=== PATIENT | female | born 1930 | race Caucasian/White ===

== ENCOUNTER 2016-10-23 20:43 | Emergency (ER) | payer OTHER, MEDICARE ==
[2016-10-23 20:49] VITALS: BP 133/94; PULSE 108; TEMP 97.9; BMI 28.3
--- NOTE | 2016-10-23 21:23 | PDOC ---
History of Present Illness - General History Source: Patient Exam Limitations: No Limitations <Cherise Tse I - Last Filed: 10/23/16 21:33> - General History Source: Patient Exam Limitations: No Limitations - History of Present Illness Initial Comments: 10/23/16 21:35 The patient is an 86 year old female with no pertinent past medical history who presents to the ED with complaints of sinus congestion and pain for the past few days. She states the pain is worse when she bends her head forward and has also been experiencing nosebleeds. She denies any fever, chills, nausea, vomiting, diarrhea, cough, shortness of breath, or chest pain. PAST MEDICAL HISTORY: no significant history PAST SURGICAL HISTORY: no significant history FAMILY HISTORY: no pertinent history SOCIAL HISTORY: Pt lives with family and is employed. MEDICATIONS: reviewed ALLERGIES: As per nursing notes General: No fevers or chills, no weakness, no weight loss HEENT: Present: sinus pain/congestion No change in vision. No sore throat,. No ear pain CardioVascular: No chest pain or shortness of breath Respiratory:No cough, or wheezing. Gastrointestinal: no nausea, vomiting, diarrhea or constipation, No rectal bleeding Genitourinary: No dysuria, hematuria, or frequency Musculoskeletal: No joint or muscle pain or swelling Neurologic: No headache, vertigo, dizziness or loss of consciousness Psychiatric: nor depression Skin: No rashes or easy bruising Endocrine: no increased thirst or abnormal weight change Allergic: no skin or latex allergy All other systems reviewed and normal GENERAL: The patient is awake, alert, and fully oriented, in no acute distress. HEAD: Normal with no signs of trauma. EYES: Pupils equal, round and reactive to light, extraocular movements intact, sclera anicteric, conjunctiva clear. ENT: Tenderness on palpation of bilateral maxillary sinus, right greater than left EXTREMITIES: Normal range of motion, no edema. NEUROLOGICAL: Normal speech, normal gait. PSYCH: Normal mood, normal affect. SKIN: Warm, Dry, normal turgor, no rashes or lesions noted. 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) Cardiac Disorders: No CVA: No COPD: No CHF: No Dementia: No Diabetes: No GI Disorders: Yes (COLONIC POLYPS/ GERD) Disorders: Yes (UTI) HTN: Yes Hypercholesterolemia: Yes Liver Disease: No Seizures: No Thyroid Disease: No - Surgical History Abdominal Surgery: No Appendectomy: No Cardiac Surgery: No Cholecystectomy: No Lung Surgery: No Neurologic Surgery: No Orthopedic Surgery: Yes (bilateral bunionectomy) - Psycho/Social/Smoking Cessation Hx Anxiety: No Suicidal Ideation: No Smoking History: Never smoked Have you smoked in the past 12 months: No Number of Cigarettes Smoked Daily: 0 If you are a former smoker, when did you quit?: 1951 Hx Alcohol Use: Yes Drug/Substance Use Hx: No Substance Use Type: Alcohol Hx Substance Use Treatment: No <Cherise Tse I - Last Filed: 10/23/16 21:33> <Sandrita Ugalde - Last Filed: 10/23/16 21:38> - Past Medical History Allergies/Adverse Reactions: Allergies Allergy/AdvReac Type Severity Reaction Status Date / Time aspirin AdvReac Intermediate DYSPEPSIA Verified 07/04/13 13:01 indomethacin AdvReac Intermediate Gastritis Unverified 12/30/15 11:31 BEE STINGS Allergy Intermediate Swelling Uncoded 07/04/13 13:01 Home Medications: Ambulatory Orders Cholecalciferol (Vitamin D3) [Vitamin D3] 1,000 unit PO DAILY capsule 02/28/13 Simvastatin [Zocor -] 40 mg PO DAILY 07/04/13 Albuterol Sulfate [Proair Respiclick] 90 mcg IH BID 10/23/16 Azithromycin 250 mg PO DAILY #4 tablet 10/23/16 Review of Systems - Review of Systems Able to Perform ROS?: Yes <Sandrita Ugalde - Last Filed: 10/23/16 21:38> *Physical Exam - Vital Signs Last Vital Signs Temp Pulse Resp BP Pulse Ox 97.9 F 108 H 16 133/94 98 10/23/16 20:46 10/23/16 20:46 10/23/16 20:46 10/23/16 20:46 10/23/16 20:46 <Cherise Tse I - Last Filed: 10/23/16 21:33> - Vital Signs Last Vital Signs Temp Pulse Resp BP Pulse Ox 97.9 F 108 H 16 133/94 98 10/23/16 20:46 10/23/16 20:46 10/23/16 20:46 10/23/16 20:46 10/23/16 20:46 <Sandrita Ugalde - Last Filed: 10/23/16 21:38> *DC/Admit/Observation/Transfer <Cherise Tse I - Last Filed: 10/23/16 21:33> - Attestations Scribe Attestion: 10/23/16 21:38 Documentation prepared by Sandrita Ugalde, acting as medical orderly for Cherise Tse MD. <Sandrita Ugalde - Last Filed: 10/23/16 21:38> Diagnosis at time of Disposition: Acute sinusitis Qualifiers: Sinusitis location: maxillary Recurrence: not specified Qualified Code(s): J01.00 - Acute maxillary sinusitis, unspecified - Discharge Dispostion Disposition: HOME Condition at time of disposition: Stable - Prescriptions Prescriptions: Azithromycin 250 mg PO DAILY #4 tablet - Referrals Referrals: Duane Mejia MD [Family Provider] - Graham Hubbard MD [Primary Care Provider] - - Patient Instructions Additional Instructions: Take azithromycin 1 tablet a day for the next 4 days take your next dose tomorrow afternoon or evening. Tylenol as needed for pain You can also purchase an [id number] decongestant and take as directed. Return to the emergency department immediately with ANY new, persistent or worsening symptoms. Continue any medications as previously prescribed by your physician. You should follow up with your primary doctor as soon as possible regarding today's emergency department visit. . Please make sure your doctor reviews the results of your emergency evaluation. Thank you for coming to the Emergency Department today for your care. It was a pleasure to see you today. Please note that your evaluation is INCOMPLETE until you follow-up with your doctor.
[2016-10-23] MEDS ORDERED: AZITHROMYCIN 250 MG TABLET (FP) PO STA (21:31)
[2016-10-23] MEDS ORDERED: AZITHROMYCIN 250 MG TABLET (FP) ONE (21:35)
== END 2016-10-23 21:40 | disposition home or self-care (01) ==
LOC: FER 20:43
DX: J01.00 Acute maxillary sinusitis, unspecified (principal); Z85.828 Personal history of other malignant neoplasm of skin; K21.9 Gastro-esophageal reflux disease without esophagitis; I10 Essential (primary) hypertension; E78.00 Pure hypercholesterolemia, unspecified; Z87.891 Personal history of nicotine dependence
CPT/HCPCS: 99282-25

== ENCOUNTER 2019-08-19 11:36 | Emergency (ER) | payer OTHER, MEDICARE ==
[2019-08-19 11:40] VITALS: BP 144/95; PULSE 88; TEMP 98.5; BMI 28.0
--- NOTE | 2019-08-19 11:45 | PDOC ---
History of Present Illness - General Chief Complaint: Cold Symptoms Stated Complaint: cough Time Seen by Provider: 08/19/19 11:39 History Source: Patient Exam Limitations: No Limitations - History of Present Illness Initial Comments: 08/19/19 11:42 89 y/o female with hx of emphysema and pneumonia 8 years ago presents with cough for 3 days. Non productive. No fever or chills. Took a breathing treatment this morning. Feels fine otherwise. Took Mucinex. Is this a multiple visit Asthma Patient?: No Past History - Past Medical History Allergies/Adverse Reactions: Allergies Allergy/AdvReac Type Severity Reaction Status Date / Time aspirin AdvReac Intermediate DYSPEPSIA Verified 08/19/19 11:41 indomethacin AdvReac Intermediate Gastritis Verified 08/19/19 11:41 BEE STINGS Allergy Intermediate Swelling Uncoded 08/19/19 11:41 Home Medications: Ambulatory Orders Albuterol Sulfate [Proair Respiclick] 90 mcg IH BID 10/23/16 Azithromycin 250 mg PO DAILY #4 tablet 10/23/16 predniSONE [Deltasone -] 20 mg PO BID #10 tablet 08/19/19 Anemia: No Asthma: Yes (ENVIRONMENTAL) 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) Cardiac Disorders: No CVA: No COPD: No CHF: No Dementia: No Diabetes: No GI Disorders: Yes (COLONIC POLYPS/ GERD) Disorders: Yes (UTI) HTN: Yes Hypercholesterolemia: Yes Liver Disease: No Seizures: No Thyroid Disease: No - Surgical History Abdominal Surgery: No Appendectomy: No Cardiac Surgery: No Cholecystectomy: No Lung Surgery: No Neurologic Surgery: No Orthopedic Surgery: Yes (bilateral bunionectomy) - Psycho Social/Smoking Cessation Hx Smoking History: Never smoked Have you smoked in the past 12 months: No Number of Cigarettes Smoked Daily: 0 If you are a former smoker, when did you quit?: 1951 Hx Alcohol Use: No Drug/Substance Use Hx: No Substance Use Type: Alcohol Hx Substance Use Treatment: No Review of Systems - Review of Systems Able to Perform ROS?: Yes Is the patient limited Croatian proficient: No Constitutional: No: Chills, Fever Respiratory: Yes: Cough. No: Shortness of Breath Cardiac (ROS): No: Chest Pain : No: Dysuria Musculoskeletal: No: Muscle Weakness Neurological: No: Headache All Other Systems: Reviewed and Negative *Physical Exam - Vital Signs Last Vital Signs Temp Pulse Resp BP Pulse Ox 98.5 F 88 18 144/95 96 08/19/19 11:37 08/19/19 11:37 08/19/19 11:37 08/19/19 11:37 08/19/19 11:37 - Physical Exam General Appearance: Yes: Nourished, Appropriately Dressed. No: Apparent Distress HEENT: positive: EOMI, MEEK, Normal ENT Inspection, Normal Voice, Symmetrical, Pharynx Normal Neck: positive: Trachea midline, Normal Thyroid, Supple. negative: Tender, Rigid, Carotid bruit Respiratory/Chest: positive: Lungs Clear, Normal Breath Sounds. negative: Chest Tender, Respiratory Distress Cardiovascular: positive: Regular Rhythm, Regular Rate, S1, S2. negative: Edema , JVD, Murmur Vascular Pulses: Femoral (R): 4+, Femoral (L): 4+, Carotid (R): 4+, Carotid (L) : 4+, Dorsalis-Pedis (R): 4+, Doralis-Pedis (L): 4+ Gastrointestinal/Abdominal: positive: Normal Bowel Sounds. negative: Tender Lymphatic: negative: Adenopathy, Tenderness, Other Musculoskeletal: positive: Normal Inspection. negative: CVA Tenderness Extremity: positive: Normal Capillary Refill, Normal Inspection, Normal Range of Motion Integumentary: positive: Normal Color, Dry, Warm Neurologic: positive: paraprofessional aide II-XII NML intact, Fully Oriented, Alert, Normal Mood/ Affect, Normal Response, Motor Strength 5/5 ED Progress Note - Progress Note Progress Note: 08/19/19 11:44 Pt appears to have a viral infection, will obtain CXR to r/o pneumonia Pt is in agreement with plan Discharge - Discharge Information Problems reviewed: Yes Clinical Impression/Diagnosis: Cough COPD (chronic obstructive pulmonary disease) Qualifiers: COPD type: unspecified COPD Qualified Code(s): J44.9 - Chronic obstructive pulmonary disease, unspecified Condition: Good Disposition: HOME - Admission No - Follow up/Referral Referrals: Ramakrishna Chaudhari MD [Primary Care Provider] - - Patient Discharge Instructions Patient Printed Discharge Instructions: DI for Cough -- Adult, DI for Emphysema Additional Instructions: Prednisone 20 mg 2x/day for 5 days Continue breathing treatment Robitussin for cough IF worsen return to ER - Post Discharge Activity
== END 2019-08-19 12:23 | disposition home or self-care (01) ==
LOC: FER 11:36
DX: J43.9 Emphysema, unspecified (principal); I10 Essential (primary) hypertension; E78.00 Pure hypercholesterolemia, unspecified; K21.9 Gastro-esophageal reflux disease without esophagitis; Z88.6 Allergy status to analgesic agent; Z88.8 Allergy status to other drugs, medicaments and biological substances; Z91.038 Other insect allergy status; Z87.440 Personal history of urinary (tract) infections; Z85.828 Personal history of other malignant neoplasm of skin
CPT/HCPCS: 71046-TC-FY; 99281-25

== ENCOUNTER 2019-08-25 11:07 | Inpatient (IN) | payer OTHER, MEDICARE ==
[2019-08-25 11:13] VITALS: BMI 28.8
--- NOTE | 2019-08-25 11:28 | PDOC ---
History of Present Illness - General Chief Complaint: Respiratory Stated Complaint: COUGH,CONGESTION,SHORTNESS OF BREATH Time Seen by Provider: 08/25/19 11:20 - History of Present Illness Initial Comments: 08/25/19 11:49 89yo female with PMH HTN, COPD, pneumonia 8 years ago presents to ED with her daughters for eval of cough/congestion. Pt was seen in the ED on 08/19 and again on 08/23. She was dx with a R ear infection on 08/23 and started on Augmentin. Pt states on tuesday she was coughing- nonproductive and it kept her up last night. Pt denies f/c all week. States she was using her proair last night. Pt states she used her proair this am. Pt states the cough feels wet, but no phlegm is coming up. States her R ear hurt a few days ago, but since being on abx she has improved. Pt had a cxr on 08/19 that was normal. States still coughing. Per the daughter, the patient was coughing so much yesterday she could hardly cough- but cough is nonproductive. No cp. Pt states she couldn' t sleep last night because of the cough. 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 Pt speaking clear full sentences. Pmhx: htn, copd, pna 8 years ago, gout all: indomethacin, asa Past History - Past Medical History Allergies/Adverse Reactions: Allergies Allergy/AdvReac Type Severity Reaction Status Date / Time aspirin AdvReac Intermediate DYSPEPSIA Verified 08/25/19 11:09 indomethacin AdvReac Intermediate Gastritis Verified 08/25/19 11:09 BEE STINGS Allergy Intermediate Swelling Uncoded 08/23/19 10:06 Home Medications: Ambulatory Orders Albuterol Sulfate [Proair Respiclick] 90 mcg IH BID 10/23/16 Amoxicillin/Potassium Clav [Augmentin 875-125 Tablet] 1 each PO BID 10 Days #20 tablet 08/23/19 Anemia: No Asthma: Yes (ENVIRONMENTAL) 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) Cardiac Disorders: No CVA: No COPD: No CHF: No Dementia: No Diabetes: No GI Disorders: Yes (COLONIC POLYPS/ GERD) Disorders: Yes (UTI) HTN: Yes Hypercholesterolemia: Yes Liver Disease: No Seizures: No Thyroid Disease: No - Surgical History Abdominal Surgery: No Appendectomy: No Cardiac Surgery: No Cholecystectomy: No Lung Surgery: No Neurologic Surgery: No Orthopedic Surgery: Yes (bilateral bunionectomy) - Psycho Social/Smoking Cessation Hx Smoking History: Never smoked Have you smoked in the past 12 months: No Number of Cigarettes Smoked Daily: 0 If you are a former smoker, when did you quit?: 1951 Hx Alcohol Use: No Drug/Substance Use Hx: No Substance Use Type: Alcohol Hx Substance Use Treatment: No Review of Systems - Review of Systems Able to Perform ROS?: Yes Is the patient limited Peruvian proficient: No Constitutional: No: Chills, Fever HEENTM: Yes: Ear Pain, Nose Congestion. No: Throat Pain Respiratory: Yes: Cough, Shortness of Breath. No: Productive cough Cardiac (ROS): No: Chest Pain ABD/GI: No: Diarrhea, Nausea, Vomiting, Abdominal cramping : No: Burning, Dysuria Musculoskeletal: No: Back Pain Integumentary: No: Rash Neurological: No: Headache All Other Systems: Reviewed and Negative *Physical Exam - Vital Signs Last Vital Signs Temp Pulse Resp BP Pulse Ox 97.9 F 102 H 19 141/83 94 L 08/25/19 11:08 08/25/19 11:08 08/25/19 11:13 08/25/19 11:08 08/25/19 11:13 - Physical Exam General Appearance: Yes: Nourished, Appropriately Dressed. No: Apparent Distress HEENT: positive: EOMI, MEEK, Other (nasal congestion, mild redness R TM- no effusion or bulging, posterior pharynx with post nasal gtt) Neck: positive: Trachea midline, Supple. negative: Tender, Lymphadenopathy (R) , Lymphadenopathy (L) Respiratory/Chest: positive: Crackles (R base), Other (speaking in full clear sentences). negative: Respiratory Distress, Accessory Muscle Use, Rhonchi, Stridor, Wheezing Cardiovascular: positive: S1, S2, Tachycardia. negative: Edema Gastrointestinal/Abdominal: positive: Soft. negative: Guarding, Rebound, Tenderness Musculoskeletal: positive: Normal Inspection Extremity: positive: Normal Capillary Refill, Other (ambulatory with a steady gait). negative: Calf Tenderness Integumentary: positive: Normal Color, Dry, Warm. negative: Rash Neurologic: positive: Fully Oriented, Alert, Normal Mood/Affect, Normal Response Heart Score/ECG Review - ECG Intrepretation Comment:: 08/25/19 13:04 sinus tach at 106, nl axis, nl interval, q waves septally which are age indeterminate, no acute st/t wave findings ED Treatment Course - LABORATORY CBC & Chemistry Diagram: 08/25/19 12:50 08/25/19 12:50 Medical Decision Making - Medical Decision Making 08/25/19 12:03 a/p: 89yo female with a cough/sob -crackles R base -suspect copd exacerbation vs viral uri with bronchospasm vs pna -already on augmentin for ear infection -will send for xray -duonebs -pt is nontoxic in appearance -no f/c all week -has appt with PMD on Tuesday08/25/19 12:33 pt with pna will add labs, cultures will add azithro to augmentin pt is already taking 08/25/19 13:03 pt updated feels better after nebs lungs more clear and rhonchi R base speaking in full sentences 08/25/19 13:23 pt with elevated wbc will add rocephin will admit for pna and leukocytosis, cough pt and family updated Dr. Esquivel is pmd will send [facility] 08/25/19 13:51 case discussed with SKEIN YARN DRIER from [facility] who accepts pt to service Discharge - Discharge Information Problems reviewed: Yes Clinical Impression/Diagnosis: COPD (chronic obstructive pulmonary disease), Cough, Right otitis media, Pneumonia Condition: Fair - Admission Yes - Follow up/Referral - Patient Discharge Instructions - Post Discharge Activity
[2019-08-25] MEDS ORDERED: ALBUTEROL SO4 2.5/IPRATROPIUM 0.5 INH SOL 3 ML VIAL.NEB. NEB ONE ×7 (11:39→15:24)
[2019-08-25] MEDS ORDERED: AZITHROMYCIN IVPB 500 MG in DEXTROSE 5%-WATER - 250 ML IVPB ONE (12:22)
[2019-08-25] MEDS ORDERED: AZITHROMYCIN 500 MG VIAL IVPB ONE (12:55)
[2019-08-25] MEDS ORDERED: SODIUM CHLORIDE 0.9% 1000 ML INFUS.BAG IV ONE ×2 (13:04→13:47)
[2019-08-25 13:07] LABS: BASO % 1.2 % (0-2.0); EOS % 0.1 % (0-4.5); HEMATOCRIT 36.5 % (32.4-45.2); HEMOGLOBIN 12.3 GM/dl (10.7-15.3); LYMPH % 12.8 % (8-40); MCH 32.2 pg (25.7-33.7); MCHC 33.7 g/dl (32.0-36.0); MEAN CELL VOLUME 95.4 fl (80-96); MEAN PLT VOLUME 10.5 fl (7.5-11.1); MONO % 12.6 % (3.8-10.2); NEUT % 73.3 % (42.8-82.8); PLATELET COUNT 132 K/MM3 (134-434); RBC 3.82 M/mm3 (3.60-5.2); RDW 16.4 % (11.6-15.6); WHITE BLOOD COUNT 17.2 K/mm3 (4.0-10.8)
[2019-08-25 13:15] LABS: ALBUMIN 3.6 g/dl (3.4-5.0); BILIRUBIN,TOTAL 0.8 mg/dl (0.2-1); CALCIUM 9.6 mg/dl (8.5-10); CREATININE 0.8 mg/dl (0.55-1.3); POTASSIUM 3.8 mmol/L (3.5-5.1); TOT PROT 6.9 g/dl (6.4-8.2)
[2019-08-25] MEDS ORDERED: CEFTRIAXONE 1 GM in DEXTROSE 5%-WATER - 100 ML IVPB ONE (13:21)
[2019-08-25] MEDS ORDERED: ACETAMINOPHEN 500 MG TABLET (FP) PO ONE (13:47)
[2019-08-25] MEDS ORDERED: ACETAMINOPHEN 500 MG TABLET (FP) ONE (13:50)
[2019-08-25] MEDS ORDERED: cefTRIAXone SODIUM 1 GM VIAL ONE (14:10)
--- NOTE | 2019-08-25 14:14 | HP ---
CHIEF COMPLAINT: Cough PCP: Dr. Esquivel HISTORY OF PRESENT ILLNESS: This is an 89yo female with a PMH HTN, emphysema/COPD,HDL, pneumonia 8 years ago and gout, who presents to ER complaining of worsening non productive cough and unable to sleep at night. Pt denies fever, chills, cp, sob, palpitations, abdominal pain, N/V/D or urinary symptoms. Pt was seen in the ED on 08/19 and again on 08/23 with worsening sinusitis with blood-streaked sputum and RT ear pain and started on Augmentin twice daily told to follow-up with Dr. Jessika Romero, ENT and discharged to home. Pt reports RT ear pain / sinus infection slowly getting better. ER course was notable for: (1)wbc 17.1, afebrile, R 22, HR 115 (2) Na 128,<k 3.8 (3) CXR: Progressive atelectasis or infiltrate Recent Travel:No PAST MEDICAL HISTORY: As mentioned above PAST SURGICAL HISTORY: Let hip sx Bilateral cataract sx Skin CA sx Bilateral foot sx Social History: Smoking: Ex- smoker Alcohol:No Drugs: No Allergies aspirin Adverse Reaction (Intermediate, Verified 08/25/19 11:09) DYSPEPSIA indomethacin Adverse Reaction (Intermediate, Verified 08/25/19 11:09) Gastritis BEE STINGS Allergy (Intermediate, Uncoded 08/23/19 10:06) Swelling HOME MEDICATIONS: Home Medications Medication Instructions Recorded Albuterol Sulfate [Proair 90 mcg IH BID 10/23/16 Respiclick] Amoxicillin/Potassium Clav 1 each PO BID 10 Days #20 tablet 08/23/19 [Augmentin 875-125 Tablet] REVIEW OF SYSTEMS CONSTITUTIONAL: Absent: fever, chills, diaphoresis, generalized weakness, malaise, loss of appetite, weight change HEENT: Absent: rhinorrhea, nasal congestion, throat pain, throat swelling, difficulty swallowing, mouth swelling, ear pain, eye pain, visual changes CARDIOVASCULAR: Absent: chest pain, syncope, palpitations, irregular heart rate, lightheadedness , peripheral edema RESPIRATORY: Absent: cough, shortness of breath, dyspnea with exertion, orthopnea, wheezing, stridor, hemoptysis GASTROINTESTINAL: Absent: abdominal pain, abdominal distension, nausea, vomiting, diarrhea, constipation, melena, hematochezia GENITOURINARY: Absent: dysuria, frequency, urgency, hesitancy, hematuria, flank pain, genital pain MUSCULOSKELETAL: Absent: myalgia, arthralgia, joint swelling, back pain, neck pain SKIN: Absent: rash, itching, pallor HEMATOLOGIC/IMMUNOLOGIC: Absent: easy bleeding, easy bruising, lymphadenopathy, frequent infections ENDOCRINE: Absent: unexplained weight gain, unexplained weight loss, heat intolerance, cold intolerance NEUROLOGIC: Absent: headache, focal weakness or paresthesias, dizziness, unsteady gait, seizure, mental status changes, bladder or bowel incontinence PSYCHIATRIC: Absent: anxiety, depression, suicidal or homicidal ideation, hallucinations. PHYSICAL EXAMINATION Vital Signs - 24 hr 08/25/19 08/25/19 08/25/19 11:08 11:13 13:46 Temperature 97.9 F 98.3 F Pulse Rate 102 H Pulse Rate [ 115 H Apical] Respiratory 22 H 19 22 H Rate Blood Pressure 141/83 Blood Pressure 122/76 [Arm] O2 Sat by Pulse 94 L 94 L 95 Oximetry (%) GENERAL: Awake, alert, and fully oriented, in no acute distress. HEAD: Normal with no signs of trauma. EYES: Pupils equal, round and reactive to light, extraocular movements intact, sclera anicteric, conjunctiva clear. No lid lag. EARS, NOSE, THROAT: Ears normal, nares patent, oropharynx clear without exudates. Moist mucous membranes. NECK: Normal range of motion, supple without lymphadenopathy, JVD, or masses. LUNGS: Breath sounds equal, clear to auscultation bilaterally. No wheezes, and no crackles. No accessory muscle use. HEART: Regular rate and rhythm, normal S1 and S2 without murmur, rub or gallop. ABDOMEN: Soft, nontender, not distended, normoactive bowel sounds, no guarding, no rebound, no masses. No hepatomegaly or splenomegaly. MUSCULOSKELETAL: Normal range of motion at all joints. No bony deformities or tenderness. No CVA tenderness. UPPER EXTREMITIES: 2+ pulses, warm, well-perfused. No cyanosis. No clubbing. No peripheral edema. LOWER EXTREMITIES: 2+ pulses, warm, well-perfused. No calf tenderness. No peripheral edema. NEUROLOGICAL: Cranial nerves II-XII intact. Normal speech. Normal gait. PSYCHIATRIC: Cooperative. Good eye contact. Appropriate mood and affect. SKIN: Warm, dry, normal turgor, no rashes or lesions noted, normal capillary refill. Laboratory Results - last 24 hr 08/25/19 08/25/19 12:50 12:50 WBC 17.2 H RBC 3.82 Hgb 12.3 Hct 36.5 MCV 95.4 MCH 32.2 MCHC 33.7 RDW 16.4 H Plt Count 132 L MPV 10.5 Absolute Neuts (auto) 12.6 Neutrophils % 73.3 Lymphocytes % 12.8 Monocytes % 12.6 H Eosinophils % 0.1 Basophils % 1.2 Sodium 128 L Potassium 3.8 Chloride 94 L Carbon Dioxide 22 Anion Gap 12 BUN 16.0 Creatinine 0.8 Est GFR (CKD-EPI)AfAm 76.29 Est GFR (CKD-EPI)NonAf 65.82 Random Glucose 138 H Calcium 9.6 Total Bilirubin 0.8 AST 20 ALT 29 Alkaline Phosphatase 66 Total Protein 6.9 Albumin 3.6 ASSESSMENT/PLAN: 89yo female with PMH HTN, emphysema/COPD,HDL, constipation,pneumonia 8 years ago and gout,who presents to ER complaining of worsening non productive cough. Admitted with pneumonia * Pneumonia - wbc 17, afebrile - s/p Ceftriaxone, Zithromax and Duo Neb in ER , will cont - will f/u on BC - will check Influenza - monitor pulse ox - cough meds * Hyponatremia- likely due to diuretic use - s/p NS bolus in ER - will cont on NS * Recent Rt otitis media/ sinusitis - stable, asymptomatic now - on abx * COPD - will cont on Duo Neb * HTN - will hold off on Aldactone due to hyponatremia * HDL - will cont on home dose Statin * COPD/emphysema - will resume on home dose Spiriva and Neb tx PRN * Gout - Allopurinol * Constipation - on Colace * F/E/N -Heart Healthy Diet -Replace electolytes as needed * VTE: Lovenox * Code status: Full Visit type - Emergency Visit Emergency Visit: Yes Care time: The patient presented to the Emergency Department on the above date and was hospitalized for further evaluation of their emergent condition. - New Patient This patient is new to me today: Yes Date on this admission: 08/25/19 - Critical Care Critical Care patient: No
[2019-08-25] MEDS ORDERED: guaiFENesin/CODEINE 5 ML UNIT-DOSE CUPS PO PRN ×2 (14:47→15:28)
[2019-08-25] MEDS ORDERED: DOCUSATE SODIUM 100 MG CAPSULE (FP) PO PRN (14:54)
[2019-08-25] MEDS ORDERED: BENZOCAINE/MENTH/CETYLPYRD CL 1 EACH LOZENGE MM PRN (14:56)
[2019-08-25] MEDS ORDERED: SODIUM CHLORIDE 1,000 ML IV SCH (15:00)
[2019-08-25] MEDS: PATIENT'S OWN MEDICATION (NON-FORMULARY) (Tiotropium Bromide [Spiriva] 18 MCG) IH SCH (20:39)
[2019-08-25] MEDS: PATIENT'S OWN MEDICATION (NON-FORMULARY) (Simvastatin [Simvastatin] 40 MG) PO SCH (21:26)
[2019-08-25] MEDS: guaiFENesin/D-METHORPHAN TAB.ER.12H PO SCH (21:26)
[2019-08-26] MEDS: ALBUTEROL SO4 2.5/IPRATROPIUM 0.5 INH SOL 3 ML VIAL.NEB. NEB PRN ×2 (01:19→20:48)
[2019-08-26] MEDS: PATIENT'S OWN MEDICATION (NON-FORMULARY) (Tiotropium Bromide [Spiriva] 18 MCG) IH SCH (06:19)
[2019-08-26] MEDS: guaiFENesin/CODEINE 10 ML UNIT-DOSE CUPS PO PRN ×2 (06:19→22:53)
[2019-08-26 09:06] LABS: HEMATOCRIT 32.8 % (32.4-45.2); HEMOGLOBIN 10.9 GM/dl (10.7-15.3); MCH 32.3 pg (25.7-33.7); MCHC 33.2 g/dl (32.0-36.0); MEAN CELL VOLUME 97.2 fl (80-96); MEAN PLT VOLUME 10.5 fl (7.5-11.1); PLATELET COUNT 108 K/MM3 (134-434); RBC 3.38 M/mm3 (3.60-5.2); RDW 16.7 % (11.6-15.6); WHITE BLOOD COUNT 9.5 K/mm3 (4.0-10.8)
[2019-08-26 09:37] LABS: CALCIUM 9.1 mg/dl (8.5-10); CREATININE 0.6 mg/dl (0.55-1.3)
[2019-08-26] MEDS ORDERED: CEFTRIAXONE 1,000 MG in DEXTROSE 5%-WATER - 50 ML IVPB SCH (10:00)
[2019-08-26] MEDS ORDERED: CEFTRIAXONE 1 G/50 ML PREMIX 50 ML IVPB SCH (10:06)
[2019-08-26] MEDS: ENOXAPARIN NA (PORCINE) 40 MG/0.4 ML DISP.SYRIN SQ SCH (10:13)
[2019-08-26] MEDS: guaiFENesin/D-METHORPHAN TAB.ER.12H PO SCH ×2 (10:14→21:42)
[2019-08-26] MEDS: CEFTRIAXONE 1,000 MG in DEXTROSE 5%-WATER - 50 ML IVPB SCH ×2 (10:15→10:27)
[2019-08-26] MEDS: ALLOPURINOL 300 MG TABLET (FP) PO SCH (10:15)
[2019-08-26] MEDS: CEFTRIAXONE 1 G/50 ML PREMIX 50 ML IVPB SCH (10:17)
--- NOTE | 2019-08-26 10:28 | PN ---
Progress Note (short form) - Note Progress Note: PULMONARY CONSULTATION DICTATED 08/26/19 IMP DYSPNEA COPD WITH ACUTE EXACERBATION ? PNEUMONIA HTN SINUSITIS HYPONATREMIA HLD H/O GOUT PLAN ABX SUPPLEMENTAL O2 INHALED BRONCHODILATORS SHORT COURSE OF STEROIDS CHEST CT IVF MONITOR BREONNA LIRA DR Problem List - Problems (1) Hyponatremia Code(s): E87.1 - HYPO-OSMOLALITY AND HYPONATREMIA (2) COPD (chronic obstructive pulmonary disease) Code(s): J44.9 - CHRONIC OBSTRUCTIVE PULMONARY DISEASE, UNSPECIFIED (3) Cough Code(s): R05 - COUGH (4) Pneumonia Code(s): J18.9 - PNEUMONIA, UNSPECIFIED ORGANISM (5) Sinusitis Code(s): J32.9 - CHRONIC SINUSITIS, UNSPECIFIED
--- NOTE | 2019-08-26 11:38 | PN ---
Physical Exam: SUBJECTIVE: Patient seen and examined, sitting up in chair, denies sob, chest pain, dizziness, reports feeling better after neb treatments OBJECTIVE: Vital Signs Period Temp Pulse Resp BP Sys/Macario Pulse Ox Last 24 Hr 97.7 F-98.4 F 91-115 18-22 119-139/50-93 93-95 GENERAL: The patient is awake, alert, and fully oriented, in no acute distress. HEAD: Normal with no signs of trauma. EYES: PERRL, extraocular movements intact, sclera anicteric, conjunctiva clear. No ptosis. ENT: Ears normal, nares patent, oropharynx clear without exudates, moist mucous membranes. NECK: Trachea midline, full range of motion, supple. LUNGS: rhonci on auscultation, no wheezing noted accessory muscle use. HEART: Regular rate and rhythm, S1, S2 without murmur, rub or gallop. ABDOMEN: Soft, nontender, nondistended, normoactive bowel sounds, no guarding, no rebound, no hepatosplenomegaly, no masses. EXTREMITIES: 2+ pulses, warm, well-perfused, no edema. NEUROLOGICAL: Cranial nerves II through XII grossly intact. Normal speech, gait not observed. PSYCH: Normal mood, normal affect. SKIN: Warm, dry, normal turgor, no rashes or lesions noted Laboratory Results - last 24 hr 08/25/19 08/25/19 08/25/19 12:50 12:50 15:10 WBC 17.2 H RBC 3.82 Hgb 12.3 Hct 36.5 MCV 95.4 MCH 32.2 MCHC 33.7 RDW 16.4 H Plt Count 132 L MPV 10.5 Absolute Neuts (auto) 12.6 Neutrophils % 73.3 Lymphocytes % 12.8 Monocytes % 12.6 H Eosinophils % 0.1 Basophils % 1.2 Sodium 128 L Potassium 3.8 Chloride 94 L Carbon Dioxide 22 Anion Gap 12 BUN 16.0 Creatinine 0.8 Est GFR (CKD-EPI)AfAm 76.29 Est GFR (CKD-EPI)NonAf 65.82 Random Glucose 138 H Calcium 9.6 Total Bilirubin 0.8 AST 20 ALT 29 Alkaline Phosphatase 66 Total Protein 6.9 Albumin 3.6 Urine Color Urine Appearance Urine pH Urine Protein Urine Glucose (UA) Urine Ketones Urine Blood Urine Nitrite Urine Bilirubin Urine Urobilinogen Ur Leukocyte Esterase Urine RBC Influenza A (Rapid) Negative Influenza B (Rapid) Negative 08/25/19 08/26/19 08/26/19 15:10 06:10 06:10 WBC 9.5 RBC 3.38 L Hgb 10.9 Hct 32.8 MCV 97.2 H MCH 32.3 MCHC 33.2 RDW 16.7 H Plt Count 108 L MPV 10.5 Absolute Neuts (auto) 5.5 Neutrophils % No Result Required. Lymphocytes % No Result Required. Monocytes % Eosinophils % Basophils % Sodium 135 L Potassium 4.0 Chloride 105 Carbon Dioxide 21 Anion Gap 9 BUN 10.0 Creatinine 0.6 Est GFR (CKD-EPI)AfAm 94.32 Est GFR (CKD-EPI)NonAf 81.38 Random Glucose 135 H Calcium 9.1 Total Bilirubin AST ALT Alkaline Phosphatase Total Protein Albumin Urine Color Yellow Urine Appearance Clear Urine pH 6.5 Urine Protein Negative Urine Glucose (UA) Negative Urine Ketones Negative Urine Blood Trace-intact Urine Nitrite Negative Urine Bilirubin Negative Urine Urobilinogen 0.2 Ur Leukocyte Esterase Negative Urine RBC 2-5 Influenza A (Rapid) Influenza B (Rapid) Active Medications Generic Name Dose Route Start Last Admin Trade Name Freq PRN Reason Stop Dose Admin Albuterol/Ipratropium 1 amp 08/25/19 20:05 08/26/19 01:19 Duoneb - NEB 1 amp Q6H PRN Administration SHORTNESS OF BREATH Allopurinol 300 mg 08/26/19 10:00 08/26/19 10:15 Zyloprim - PO 300 mg DAILY ANTHONY Administration Benzocaine/Menthol 1 each 08/25/19 14:56 08/26/19 10:18 Cepacol Lozenge - MM 1 each PRN PRN Administration SORE THROAT Docusate Sodium 100 mg 08/25/19 14:54 Colace - PO BID PRN CONSTIPATION Enoxaparin Sodium 40 mg 08/26/19 10:00 08/26/19 10:13 Lovenox - SQ 40 mg DAILY ANTHONY Administration Guaifenesin 1 tablet 08/25/19 22:00 08/26/19 10:14 Mucinex Dm - PO 1 tablet BID ANTHONY Administration Guaifenesin/Codeine Phosphate 5 ml 08/25/19 23:19 08/26/19 06:19 Robitussin Ac - PO 5 ml HS PRN Administration COUGH Sodium Chloride 1,000 mls @ 75 mls/hr 08/25/19 15:00 08/25/19 20:40 Normal Saline - IV Not Given ASDIR ANTHONY Azithromycin 250 mg/ Dextrose 250 mls @ 250 mls/hr 08/26/19 13:00 IVPB DAILY ANTHONY Ceftriaxone Sodium 50 mls @ 100 mls/hr 08/26/19 10:15 08/26/19 10:17 Ceftriaxone 1 Gm-D5w Bag IVPB 100 mls/hr DAILY ANTHONY Administration Methylprednisolone Sodium Succinate 40 mg 08/26/19 11:45 Solu-Medrol - IVPUSH Q8H-IV ANTHONY Non-Formulary Medication 40 mg 08/25/19 22:00 08/25/19 21:26 Simvastatin [Simvastatin] PO 40 mg HS ANTHONY Administration Non-Formulary Medication 18 mcg 08/25/19 20:30 08/26/19 06:19 Tiotropium [place] [Spiriva] IH 18 mcg AM ANTHONY Administration ASSESSMENT/PLAN: 89yo female with PMH HTN, emphysema/COPD,HDL, constipation,pneumonia 8 years ago and gout,who presents to ER complaining of worsening non productive cough. Admitted for PNA vs COPD exacerbation * Pneumonia vs Acute on chronic COPD exacerbation - c/w Ceftriaxone, Zithromax -duonebs -blood cx in process - will check Influenza - monitor pulse ox - cough meds -Pulm consult, seen by Dr. Nayak this AM * Hyponatremia- improved -Na+135 -will cont on NS * Recent Rt otitis media/ sinusitis - stable, asymptomatic now - on abx * COPD - will cont on Duo Neb * HTN - can resume Aldactone * HDL -c/w statin * COPD/emphysema -on home dose Spiriva and Neb tx PRN * Gout - Allopurinol * Constipation - on Colace * F/E/N -Heart Healthy Diet -Replace electolytes as needed * VTE: Lovenox * Code status: Full Visit type - Emergency Visit Emergency Visit: Yes ED Registration Date: 08/25/19 Care time: The patient presented to the Emergency Department on the above date and was hospitalized for further evaluation of their emergent condition. - New Patient This patient is new to me today: Yes Date on this admission: 08/26/19 - Critical Care Critical Care patient: No
--- NOTE | 2019-08-26 12:55 | CONS ---
DATE OF CONSULTATION: 08/26/2019 REFERRING PHYSICIAN: Laura Kapoor MD The patient is an 89-year-old female, past medical history of COPD, on inhaled bronchodilators, hypertension, history of pneumonia 8 years ago, gout, sinusitis, admitted to [facility], [facility], with complaint of increasing shortness of breath and cough. Patient denied any fevers, chills. Denied any hemoptysis. Patient states that she was seen in the emergency room on August 19 secondary to cough as well as some shortness of breath and wheezing. She was noted to have worsening sinusitis with blood-streaked sputum. At the time, she started Augmentin b.i.d. and told to follow up with ENT. The patient was discharged home in stable condition. Apparently ear infection and sinus infection started to improve but she had persistent progressive cough as well as some shortness of breath with exertion. At which time she presented back to the ER. In the ER, she was felt to have possible pneumonia. She was started on antibiotic therapy and inhaled bronchodilators. Patient has a history of smoking during the teenage years, although she has been exposed to some secondhand smoke from her and her father. There is no history of occupational exposure to chemicals or fumes. She has never been intubated. There is no history of recent travel. Past medical history, again, includes COPD, hypertension, hyperlipidemia, history of pneumonia 8 years ago, gout, sinusitis. Past surgical history includes left hip, bilateral cataracts, skin CA status post surgery, and bilateral foot surgeries. Current medications include simvastatin, Spiriva, Zithromax, Lovenox, Zyloprim, Mucinex, DuoNeb, Colace, ceftriaxone, and Cepacol. REVIEW OF SYSTEMS: Positive for cough, positive dyspnea on exertion, positive chest congestion. No chest pain, no palpitation, no abdominal pain, no lower extremity edema. PHYSICAL EXAMINATION: General: The patient is an elderly female, awake, alert, in no acute distress. Vital Signs: She is afebrile. Blood pressure 139/93. Respiratory rate 18. O2 saturation is 93% on room air. HEENT: Normocephalic, atraumatic. Neck: Supple without adenopathy. Heart: Regular, S1, S2. Chest: Scattered bilateral rhonchi and wheezes. Abdomen: Soft. Bowel sounds positive. Extremities: No cyanosis, edema. LABORATORY DATA: WBC 9.5, hemoglobin 10.9, hematocrit 32.8, with a platelet count of 108,000. Initially WBC was 17.2, hemoglobin 12.3, hematocrit 36.5, platelet count 132,000. Chemistries: BUN 10, creatinine 0.6. Initially sodium was 128, most recent repeat 135. Chest x-ray reveals atelectasis and/or infiltrate, horizontal fissure. IMPRESSION: 1. Cough and mild congestion, dyspnea. Rule out pneumonia versus acute bronchitis. 2. Recent sinusitis. 3. Hypertension. 4. Hyperlipidemia. 5. Hyponatremia. 6. History of gout. PLAN: Antibiotics, supplemental O2, inhaled bronchodilator, short course of Medrol x24 to [address] scan of the chest. Monitor electrolytes, serum sodium. IV fluids. ZULY MACK M.D. [id number]
[2019-08-26] MEDS ORDERED: REFRIGERATED ANITBIOTICS ONE (12:57)
[2019-08-26] MEDS ORDERED: AZITHROMYCIN IVPB 250 MG in DEXTROSE 5%-WATER - 250 ML IVPB SCH (13:00)
[2019-08-26 13:08] LABS: PLATELET ESTIMATE SLT DECREASE
[2019-08-26] MEDS: methylPREDNISolone NA SUCC 40 MG/1 ML VIAL IVPUSH SCH ×2 (13:12→17:46)
[2019-08-26] MEDS: AZITHROMYCIN IVPB 250 MG in DEXTROSE 5%-WATER - 250 ML IVPB SCH (13:22)
--- NOTE | 2019-08-26 15:16 | EKG ---
Test Reason : Blood Pressure : / mmHG Vent. Rate : 106 BPM Atrial Rate : 106 BPM P-R Int : 166 ms QRS Dur : 078 ms QT Int : 326 ms P-R-T Axes : 044 002 042 degrees QTc Int : 433 ms SINUS TACHYCARDIA POSSIBLE LEFT ATRIAL ENLARGEMENT LEFT VENTRICULAR HYPERTROPHY CANNOT RULE OUT SEPTAL INFARCT , AGE UNDETERMINED ABNORMAL ECG NO PREVIOUS ECGS AVAILABLE Confirmed by MD DANIA, ROSE ([id number]) on 08/26/2019 3:15:26 PM Referred By: CASSANDRA ARCHULETA Confirmed By:ROSE NAJERA MD
[2019-08-26] MEDS: PATIENT'S OWN MEDICATION (NON-FORMULARY) (Simvastatin [Simvastatin] 40 MG) PO SCH (21:42)
[2019-08-27] MEDS: methylPREDNISolone NA SUCC 40 MG/1 ML VIAL IVPUSH SCH ×3 (01:27→18:30)
[2019-08-27] MEDS: ALBUTEROL SO4 2.5/IPRATROPIUM 0.5 INH SOL 3 ML VIAL.NEB. NEB PRN (03:12)
[2019-08-27] MEDS: PATIENT'S OWN MEDICATION (NON-FORMULARY) (Tiotropium Bromide [Spiriva] 18 MCG) IH SCH (06:33)
[2019-08-27 08:23] LABS: EOS % 0.2 % (0-4.5); HEMATOCRIT 32.1 % (32.4-45.2); HEMOGLOBIN 11.1 GM/dl (10.7-15.3); MCH 32.8 pg (25.7-33.7); MCHC 34.4 g/dl (32.0-36.0); MEAN CELL VOLUME 95.4 fl (80-96); MEAN PLT VOLUME 10.4 fl (7.5-11.1); NEUT % 86.8 % (42.8-82.8); PLATELET COUNT 119 K/MM3 (134-434); RBC 3.37 M/mm3 (3.60-5.2); RDW 16.1 % (11.6-15.6); WHITE BLOOD COUNT 7.7 K/mm3 (4.0-10.8)
[2019-08-27 08:24] LABS: BILIRUBIN,TOTAL 0.4 mg/dl (0.2-1); CREATININE 0.7 mg/dl (0.55-1.3); MAGNESIUM 1.8 mg/dL (1.8-2.4); TOT PROT 6.2 g/dl (6.4-8.2)
[2019-08-27] MEDS: SPIRONOLACTONE 25 MG TABLET (FP) PO SCH ×2 (09:15→21:19)
[2019-08-27] MEDS: CEFTRIAXONE 1 G/50 ML PREMIX 50 ML IVPB SCH (09:15)
[2019-08-27] MEDS: ALLOPURINOL 300 MG TABLET (FP) PO SCH (09:15)
[2019-08-27] MEDS: guaiFENesin/D-METHORPHAN TAB.ER.12H PO SCH ×2 (09:15→21:17)
[2019-08-27] MEDS: AZITHROMYCIN IVPB 250 MG in DEXTROSE 5%-WATER - 250 ML IVPB SCH (10:20)
[2019-08-27] MEDS: ENOXAPARIN NA (PORCINE) 40 MG/0.4 ML DISP.SYRIN SQ SCH (10:30)
[2019-08-27] MEDS: PANTOPRAZOLE 40 MG TABLET (FP) PO SCH (12:30)
--- NOTE | 2019-08-27 17:56 | PN ---
Progress Note (short form) - Note Progress Note: PULMONARY AMBULATING IN ROOM WITH FAMILY PRESENT NOT WEARING O2 COUGH PERSISTS BUT SUBJECTIVE IMPROVEMENT VSS/AFEBRILE ANICTERIC B/L RHONCHI L>R /EXP WHEEZE PRESENT S1S2 BS+ NO EDEMA LABS/MEDS/NOTES/IMAGES/MICRO REVIEWED IMP PNEUMONIA COPD WITH ACUTE EXACERBATION HTN SINUSITIS HLD H/O GOUT PLAN ABX/STEROIDS/BRONCHODILATORS/O2 CHEST CT REVIEWED IVF NEEDED Gemini POWERS MD
--- NOTE | 2019-08-27 20:36 | PN ---
Documentation entered by Giulia Bill SCRIBE, acting as scribe for Aura Fitzgerald NP. Physical Exam: SUBJECTIVE: Patient seen and examined. Daughter in law who is RN present. Patient c/o constipation. All questions answered. OBJECTIVE: Vital Signs Period Temp Pulse Resp BP Sys/Macario Pulse Ox Last 24 Hr 97.4 F-98.2 F 87-92 16-20 125-146/58-69 93-96 GENERAL: The patient is awake, alert, and fully oriented, in no acute distress. LUNGS: Diffuse expiratory wheezing. HEART: Regular rate and rhythm, S1, S2 ABDOMEN: Soft, nontender, nondistended EXTREMITIES: 2+ pulses, warm, well-perfused, no edema. NEUROLOGICAL: Cranial nerves II through XII grossly intact. Normal speech, gait not observed. SKIN: Warm, dry, normal turgor Laboratory Results - last 24 hr 08/26/19 08/26/19 08/27/19 06:10 06:10 07:22 WBC 9.5 7.7 RBC 3.38 L 3.37 L Hgb 10.9 11.1 Hct 32.8 32.1 L MCV 97.2 H 95.4 MCH 32.3 32.8 MCHC 33.2 34.4 RDW 16.7 H 16.1 H Plt Count 108 L 119 L MPV 10.5 10.4 Absolute Neuts (auto) 5.5 6.7 Neutrophils % No Result Required. 86.8 H Neutrophils % (Manual) 52.0 Band Neutrophils % 3.0 Lymphocytes % No Result Required. 11.0 Lymphocytes % (Manual) 23.0 Monocytes % 2.0 L Monocytes % (Manual) 21 H* Eosinophils % 0.2 Eosinophils % (Manual) 1.0 Basophils % 0.0 Platelet Estimate Slt decrease Sodium 135 L Potassium 4.0 Chloride 105 Carbon Dioxide 21 Anion Gap 9 BUN 10.0 Creatinine 0.6 Est GFR (CKD-EPI)AfAm 94.32 Est GFR (CKD-EPI)NonAf 81.38 Random Glucose 135 H Calcium 9.1 Magnesium Total Bilirubin AST ALT Alkaline Phosphatase Total Protein Albumin 08/27/19 07:22 WBC RBC Hgb Hct MCV MCH MCHC RDW Plt Count MPV Absolute Neuts (auto) Neutrophils % Neutrophils % (Manual) Band Neutrophils % Lymphocytes % Lymphocytes % (Manual) Monocytes % Monocytes % (Manual) Eosinophils % Eosinophils % (Manual) Basophils % Platelet Estimate Sodium 131 L Potassium 4.0 Chloride 103 Carbon Dioxide 17 L Anion Gap 11 BUN 13.0 Creatinine 0.7 Est GFR (CKD-EPI)AfAm 89.66 Est GFR (CKD-EPI)NonAf 77.36 Random Glucose 325 H Calcium 9.0 Magnesium 1.8 Total Bilirubin 0.4 AST 28 ALT 31 Alkaline Phosphatase 57 Total Protein 6.2 L Albumin 3.0 L Active Medications Generic Name Dose Route Start Last Admin Trade Name Freq PRN Reason Stop Dose Admin Albuterol/Ipratropium 1 amp 08/25/19 20:05 08/27/19 03:12 Duoneb - NEB 1 amp Q6H PRN Administration SHORTNESS OF BREATH Allopurinol 300 mg 08/26/19 10:00 08/26/19 10:15 Zyloprim - PO 300 mg DAILY ANTHONY Administration Benzocaine/Menthol 1 each 08/25/19 14:56 08/26/19 10:18 Cepacol Lozenge - MM 1 each PRN PRN Administration SORE THROAT Docusate Sodium 100 mg 08/25/19 14:54 08/26/19 17:46 Colace - PO 100 mg BID PRN Administration CONSTIPATION Enoxaparin Sodium 40 mg 08/26/19 10:00 08/26/19 10:13 Lovenox - SQ 40 mg DAILY ANTHONY Administration Guaifenesin 1 tablet 08/25/19 22:00 08/26/19 21:42 Mucinex Dm - PO Not Given BID ANTHONY Guaifenesin/Codeine Phosphate 5 ml 08/25/19 23:19 08/26/19 22:53 Robitussin Ac - PO 5 ml HS PRN Administration COUGH Sodium Chloride 1,000 mls @ 75 mls/hr 08/25/19 15:00 08/25/19 20:40 Normal Saline - IV Not Given ASDIR ANTHONY Azithromycin 250 mg/ Dextrose 250 mls @ 250 mls/hr 08/26/19 13:00 08/26/19 13 :22 IVPB 250 mls/hr DAILY ANTHONY Administration Ceftriaxone Sodium 50 mls @ 100 mls/hr 08/26/19 10:15 08/26/19 10:17 Ceftriaxone 1 Gm-D5w Bag IVPB 100 mls/hr DAILY ANTHONY Administration Methylprednisolone Sodium Succinate 40 mg 08/26/19 11:45 08/27/19 01:27 Solu-Medrol - IVPUSH 08/27/19 18:00 40 mg Q8H-IV ANTHONY Administration Non-Formulary Medication 40 mg 08/25/19 22:00 08/26/19 21:42 Simvastatin [Simvastatin] PO 40 mg HS ANTHONY Administration Non-Formulary Medication 18 mcg 08/25/19 20:30 08/27/19 06:33 Tiotropium [place] [Spiriva] IH 18 mcg AM ANTHONY Administration Spironolactone 25 mg 08/27/19 10:00 Aldactone - PO BID ANTHONY ASSESSMENT/PLAN: 89 year-old female with a PMH significant for HTN, HLD, COPD, GERD, chronic constipation, and gout, admitted for pneumonia. Community-acquired pneumonia Acute on chronic COPD --08/26 CT chest: patchy consolidation RLL --afebrile --leukocytosis likely secondary to steroids --continue ceftriaxone (day #2) and azithromycin (day #2) --duonebs scheduled --continue Spiriva --continue solumedrol IVP 40mg q8h --rapid flu negative --blood cultures NGTD --Legionella pending --respiratory virus panel PCR (swab) pending Pulmonary nodule --6mm RLL nodule, needs 3-month followup Hypertension --BP stable --continue spironolactone Hyperlipidemia --continue simvastatin GERD --protonix Chronic constipation --miralax, colace Gout --continue allopurinol FEN Fluids: PO intake adequate Electrolytes: replete as indicated Nutrition: low sodium DVT prophylaxis: subq lovenox Dispo: continues to require inpatient care. Full code. Visit type - Emergency Visit Emergency Visit: Yes ED Registration Date: 08/25/19 Care time: The patient presented to the Emergency Department on the above date and was hospitalized for further evaluation of their emergent condition. - New Patient This patient is new to me today: Yes Date on this admission: 08/27/19 - Critical Care Critical Care patient: No Aura Fitzgerald NP: This documentation has been prepared by the Fly long Maria, SCRIBE, under my direction and personally reviewed by me in its entirety. I confirm that the documentation accurately reflects all work, treatment, procedures, and medical decision making performed by me.
[2019-08-27] MEDS: DOCUSATE SODIUM 100 MG CAPSULE (FP) PO SCH (21:16)
[2019-08-27] MEDS: POLYETHYLENE GLYCOL 3350 119 GM BTL PO SCH (21:16)
[2019-08-27] MEDS: ALBUTEROL SO4 2.5/IPRATROPIUM 0.5 INH SOL 3 ML VIAL.NEB. NEB SCH (21:17)
[2019-08-27] MEDS: PATIENT'S OWN MEDICATION (NON-FORMULARY) (Simvastatin [Simvastatin] 40 MG) PO SCH (21:17)
[2019-08-27] MEDS: INSULIN (NOVOLOG) ASPART 100 UNITS/ML 10ML VIAL SQ SCH (22:00)
[2019-08-28] MEDS: methylPREDNISolone NA SUCC 40 MG/1 ML VIAL IVPUSH SCH ×2 (02:00→09:55)
[2019-08-28] MEDS: INSULIN (NOVOLOG) ASPART 100 UNITS/ML 10ML VIAL SQ SCH ×4 (07:12→21:34)
[2019-08-28 08:05] LABS: BASO % 0.3 % (0-2.0); HEMATOCRIT 32.9 % (32.4-45.2); HEMOGLOBIN 11.2 GM/dl (10.7-15.3); LYMPH % 5.7 % (8-40); MCH 32.2 pg (25.7-33.7); MEAN CELL VOLUME 94.5 fl (80-96); MEAN PLT VOLUME 10.1 fl (7.5-11.1); MONO % 9.1 % (3.8-10.2); NEUT % 84.9 % (42.8-82.8); PLATELET COUNT 136 K/MM3 (134-434); RBC 3.48 M/mm3 (3.60-5.2); RDW 16.6 % (11.6-15.6); WHITE BLOOD COUNT 11.3 K/mm3 (4.0-10.8)
[2019-08-28 08:08] LABS: CREATININE 0.7 mg/dl (0.55-1.3); POTASSIUM 4.2 mmol/L (3.5-5.1)
[2019-08-28 08:09] LABS: ALBUMIN 3.1 g/dl (3.4-5.0); BILIRUBIN,TOTAL 0.4 mg/dl (0.2-1); CALCIUM 9.3 mg/dl (8.5-10); TOT PROT 6.4 g/dl (6.4-8.2)
--- NOTE | 2019-08-28 09:48 | PN ---
Progress Note (short form) - Note Progress Note: PULMONARY NOT WEARING O2 COUGH PERSISTS BUT SUBJECTIVE IMPROVEMENT VSS/AFEBRILE ANICTERIC B/L RHONCHI L>R /EXP WHEEZE PRESENT BUT LESS S1S2 BS+ NO EDEMA LABS/MEDS/NOTES/IMAGES/MICRO REVIEWED IMP PNEUMONIA COPD WITH ACUTE EXACERBATION HTN SINUSITIS HLD H/O GOUT PLAN ABX/STEROIDS/BRONCHODILATORS/O2 CHEST CT REVIEWED IVF NEEDED SHOULD BE READY FOR DISCHARGE IN AM R GIO CARLIN
[2019-08-28] MEDS: guaiFENesin/D-METHORPHAN TAB.ER.12H PO SCH ×2 (09:55→21:34)
[2019-08-28] MEDS: POLYETHYLENE GLYCOL 3350 119 GM BTL PO SCH ×2 (09:56→21:34)
[2019-08-28] MEDS: ENOXAPARIN NA (PORCINE) 40 MG/0.4 ML DISP.SYRIN SQ SCH (09:56)
[2019-08-28] MEDS: PANTOPRAZOLE 40 MG TABLET (FP) PO SCH (10:00)
[2019-08-28] MEDS: CEFTRIAXONE 1 G/50 ML PREMIX 50 ML IVPB SCH (10:23)
[2019-08-28] MEDS: ALBUTEROL SO4 2.5/IPRATROPIUM 0.5 INH SOL 3 ML VIAL.NEB. NEB SCH ×4 (11:11→21:34)
[2019-08-28] MEDS: AZITHROMYCIN IVPB 250 MG in DEXTROSE 5%-WATER - 250 ML IVPB SCH (11:12)
--- NOTE | 2019-08-28 14:04 | PN ---
Documentation entered by Giulia Bill SCRIBE, acting as scribe for Aura Fitzgerald NP. Physical Exam: SUBJECTIVE: Patient seen and examined. Feels better, BM this morning, voices no complaints. OBJECTIVE: Vital Signs Period Temp Pulse Resp BP Sys/Macario Pulse Ox Last 24 Hr 97.5 F-98.4 F 77-101 18-19 118-140/54-71 95-98 GENERAL: The patient is awake, alert, and fully oriented, in no acute distress. LUNGS: CTA. HEART: Regular rate and rhythm, S1, S2 ABDOMEN: Soft, nontender, nondistended EXTREMITIES: 2+ pulses, warm, well-perfused, no edema. NEUROLOGICAL: Cranial nerves II through XII grossly intact. Normal speech, gait not observed. SKIN: Warm, dry, normal turgor Laboratory Results - last 24 hr 08/27/19 08/27/19 08/27/19 07:22 07:22 21:58 WBC 7.7 RBC 3.37 L Hgb 11.1 Hct 32.1 L MCV 95.4 MCH 32.8 MCHC 34.4 RDW 16.1 H Plt Count 119 L MPV 10.4 Absolute Neuts (auto) 6.7 Neutrophils % 86.8 H Lymphocytes % 11.0 Monocytes % 2.0 L Eosinophils % 0.2 Basophils % 0.0 Sodium 131 L Potassium 4.0 Chloride 103 Carbon Dioxide 17 L Anion Gap 11 BUN 13.0 Creatinine 0.7 Est GFR (CKD-EPI)AfAm 89.66 Est GFR (CKD-EPI)NonAf 77.36 POC Glucometer 325 Random Glucose 325 H Calcium 9.0 Magnesium 1.8 Total Bilirubin 0.4 AST 28 ALT 31 Alkaline Phosphatase 57 Total Protein 6.2 L Albumin 3.0 L 08/28/19 06:42 WBC RBC Hgb Hct MCV MCH MCHC RDW Plt Count MPV Absolute Neuts (auto) Neutrophils % Lymphocytes % Monocytes % Eosinophils % Basophils % Sodium Potassium Chloride Carbon Dioxide Anion Gap BUN Creatinine Est GFR (CKD-EPI)AfAm Est GFR (CKD-EPI)NonAf POC Glucometer 202 Random Glucose Calcium Magnesium Total Bilirubin AST ALT Alkaline Phosphatase Total Protein Albumin Active Medications Generic Name Dose Route Start Last Admin Trade Name Freq PRN Reason Stop Dose Admin Albuterol/Ipratropium 1 amp 08/27/19 20:00 08/27/19 21:17 Duoneb - NEB 1 amp RQID ANTHONY Administration Allopurinol 300 mg 08/26/19 10:00 08/27/19 09:15 Zyloprim - PO 300 mg DAILY ANTHONY Administration Benzocaine/Menthol 1 each 08/25/19 14:56 08/26/19 10:18 Cepacol Lozenge - MM 1 each PRN PRN Administration SORE THROAT Docusate Sodium 300 mg 08/27/19 22:00 08/27/19 21:16 Colace - PO Not Given HS ANTHONY Enoxaparin Sodium 40 mg 08/26/19 10:00 08/27/19 10:30 Lovenox - SQ 40 mg DAILY ANTHONY Administration Guaifenesin 1 tablet 08/25/19 22:00 08/27/19 21:17 Mucinex Dm - PO 1 tablet BID ANTHONY Administration Guaifenesin/Codeine Phosphate 5 ml 08/25/19 23:19 08/26/19 22:53 Robitussin Ac - PO 5 ml HS PRN Administration COUGH Azithromycin 250 mg/ Dextrose 250 mls @ 250 mls/hr 08/26/19 13:00 08/27/19 10 :20 IVPB 250 mls/hr DAILY ANTHONY Administration Ceftriaxone Sodium 50 mls @ 100 mls/hr 08/26/19 10:15 08/27/19 09:15 Ceftriaxone 1 Gm-D5w Bag IVPB 100 mls/hr DAILY ANTHONY Administration Insulin Aspart 0 units 08/27/19 22:00 08/28/19 07:12 Novolog Vial SQ 4 units ACHS ANTHONY Administration Protocol Methylprednisolone Sodium Succinate 40 mg 08/28/19 02:00 08/28/19 02:00 Solu-Medrol - IVPUSH 40 mg Q8H-IV ANTHONY Administration Non-Formulary Medication 40 mg 08/25/19 22:00 08/27/19 21:17 Simvastatin [Simvastatin] PO 40 mg HS ANTHONY Administration Pantoprazole Sodium 40 mg 08/27/19 12:15 08/27/19 12:30 Protonix - PO 40 mg DAILY ANTHONY Administration Polyethylene Glycol 17 gm 08/27/19 22:00 08/27/19 21:16 Miralax (For Daily Use) - PO 17 gm BID ANTHONY Administration Spironolactone 25 mg 08/27/19 10:00 08/27/19 21:19 Aldactone - PO 25 mg BID ANTHONY Administration ASSESSMENT/PLAN 89 year-old female with a PMH significant for HTN, HLD, COPD, GERD, chronic constipation, and gout, admitted for pneumonia. Community-acquired pneumonia Acute on chronic COPD --08/26 CT chest: patchy consolidation RLL --afebrile; no leukocytosis --leukocytosis likely secondary to steroids --continue ceftriaxone (day #3) and azithromycin (day #3) --duonebs scheduled --continue Spiriva --continue solumedrol IVP 40mg q8h --rapid flu negative; urine Ag neg; --blood cultures NGTD Pulmonary nodule --6mm RLL nodule, needs 3-month followup Hypertension --BP stable --continue spironolactone Hyperlipidemia --continue simvastatin GERD --protonix Chronic constipation --BM today, continue miralax, colace Gout --continue allopurinol FEN Fluids: PO intake adequate Electrolytes: replete as indicated Nutrition: low sodium DVT prophylaxis: subq lovenox Dispo: continues to require inpatient care. Full code. Visit type - Emergency Visit Emergency Visit: Yes ED Registration Date: 08/25/19 Care time: The patient presented to the Emergency Department on the above date and was hospitalized for further evaluation of their emergent condition. - New Patient This patient is new to me today: No - Critical Care Critical Care patient: No Aura Fitzgerald PICK PACK WORKER: This documentation has been prepared by the Fly long Maria, SCRIBE, under my direction and personally reviewed by me in its entirety. I confirm that the documentation accurately reflects all work, treatment, procedures, and medical decision making performed by me.
[2019-08-28] MEDS: DOCUSATE SODIUM 100 MG CAPSULE (FP) PO SCH (21:33)
[2019-08-28] MEDS: SPIRONOLACTONE 25 MG TABLET (FP) PO SCH (21:34)
[2019-08-28] MEDS: PATIENT'S OWN MEDICATION (NON-FORMULARY) (Simvastatin [Simvastatin] 40 MG) PO SCH (21:34)
[2019-08-29] MEDS: methylPREDNISolone NA SUCC 40 MG/1 ML VIAL IVPUSH SCH ×2 (02:00→09:08)
[2019-08-29] MEDS: INSULIN (NOVOLOG) ASPART 100 UNITS/ML 10ML VIAL SQ SCH ×4 (06:59→21:53)
[2019-08-29] MEDS: ALBUTEROL SO4 2.5/IPRATROPIUM 0.5 INH SOL 3 ML VIAL.NEB. NEB SCH ×4 (08:05→20:28)
[2019-08-29 08:54] LABS: BASO % 0.7 % (0-2.0); HEMATOCRIT 36.6 % (32.4-45.2); HEMOGLOBIN 11.9 GM/dl (10.7-15.3); LYMPH % 6.8 % (8-40); MCH 31.1 pg (25.7-33.7); MCHC 32.5 g/dl (32.0-36.0); MEAN CELL VOLUME 95.8 fl (80-96); MEAN PLT VOLUME 10.6 fl (7.5-11.1); MONO % 4.2 % (3.8-10.2); NEUT % 88.3 % (42.8-82.8); PLATELET COUNT 153 K/MM3 (134-434); RBC 3.82 M/mm3 (3.60-5.2); RDW 16.6 % (11.6-15.6); WHITE BLOOD COUNT 10.1 K/mm3 (4.0-10.8)
[2019-08-29] MEDS: SPIRONOLACTONE 25 MG TABLET (FP) PO SCH ×3 (09:06→22:20)
[2019-08-29] MEDS: POLYETHYLENE GLYCOL 3350 119 GM BTL PO SCH ×2 (09:06→21:41)
[2019-08-29] MEDS: ALLOPURINOL 300 MG TABLET (FP) PO SCH (09:07)
[2019-08-29] MEDS: PANTOPRAZOLE 40 MG TABLET (FP) PO SCH (09:07)
[2019-08-29] MEDS: AZITHROMYCIN IVPB 250 MG in DEXTROSE 5%-WATER - 250 ML IVPB SCH (09:07)
[2019-08-29] MEDS: guaiFENesin/D-METHORPHAN TAB.ER.12H PO SCH ×2 (09:07→21:42)
[2019-08-29] MEDS: ENOXAPARIN NA (PORCINE) 40 MG/0.4 ML DISP.SYRIN SQ SCH (09:08)
[2019-08-29 09:13] LABS: ALBUMIN 3.4 g/dl (3.4-5.0); BILIRUBIN,TOTAL 0.5 mg/dl (0.2-1); CALCIUM 9.5 mg/dl (8.5-10); CREATININE 0.7 mg/dl (0.55-1.3); MAGNESIUM 2.1 mg/dL (1.8-2.4); POTASSIUM 4.3 mmol/L (3.5-5.1); TOT PROT 6.6 g/dl (6.4-8.2)
[2019-08-29] MEDS: CEFTRIAXONE 1 G/50 ML PREMIX 50 ML IVPB SCH (09:50)
[2019-08-29] MEDS ORDERED: predniSONE 20 MG TABLET (UD) PO SCH (12:30)
--- NOTE | 2019-08-29 12:33 | PN ---
Progress Note (short form) - Note Progress Note: PULMONARY NOT WEARING O2 COUGH PERSISTS BUT SUBJECTIVE IMPROVEMENT FAMILY IN ATTENDANCE VSS/AFEBRILE ANICTERIC B/L RHONCHI L>R /EXP WHEEZE PRESENT BUT LESS S1S2 BS+ NO EDEMA LABS/MEDS/NOTES/IMAGES/MICRO REVIEWED IMP INFILTRATE ? CHRONIC COPD WITH ACUTE EXACERBATION RESOLVING HTN SINUSITIS HLD H/O GOUT LUNG NODULE PLAN ABX ( NO OBJECTION TO CHANGING TO ORAL) /STEROIDS CHANGED TO ORAL/BRONCHODILATORS/O2 PRN CHEST [address] REVIEWED WILL FOLLOW [address] 2/2 NODULE SHOULD BE READY FOR DISCHARGE IN AM Gemini POWERS MD
--- NOTE | 2019-08-29 16:30 | PN ---
Documentation entered by Giulia Bill SCRIBE, acting as scribe for Aura Fitzgerald NP. Physical Exam: SUBJECTIVE: Patient seen and examined. Voices no complaints. OBJECTIVE: Vital Signs Period Temp Pulse Resp BP Sys/Macario Pulse Ox Last 24 Hr 97.5 F-98.5 F 79-110 17-19 117-142/59-76 94-97 GENERAL: The patient is awake, alert, and fully oriented, in no acute distress. LUNGS: Scattered expiratory wheezing. HEART: Regular rate and rhythm, S1, S2 ABDOMEN: Soft, nontender, nondistended EXTREMITIES: 2+ pulses, warm, well-perfused, no edema. NEUROLOGICAL: Cranial nerves II through XII grossly intact. Normal speech, gait not observed. SKIN: Warm, dry, normal turgor Laboratory Results - last 24 hr 08/28/19 08/28/19 08/28/19 11:33 16:38 21:23 WBC RBC Hgb Hct MCV MCH MCHC RDW Plt Count MPV Absolute Neuts (auto) Neutrophils % Lymphocytes % Monocytes % Eosinophils % Basophils % Sodium Potassium Chloride Carbon Dioxide Anion Gap BUN Creatinine Est GFR (CKD-EPI)AfAm Est GFR (CKD-EPI)NonAf POC Glucometer 246 241 168 Random Glucose Calcium Magnesium Total Bilirubin AST ALT Alkaline Phosphatase Total Protein Albumin 08/29/19 08/29/19 08/29/19 06:42 08:37 08:37 WBC 10.1 RBC 3.82 Hgb 11.9 Hct 36.6 MCV 95.8 MCH 31.1 MCHC 32.5 RDW 16.6 H Plt Count 153 MPV 10.6 Absolute Neuts (auto) 8.9 Neutrophils % 88.3 H Lymphocytes % 6.8 L Monocytes % 4.2 Eosinophils % 0.0 Basophils % 0.7 Sodium 131 L Potassium 4.3 Chloride 98 Carbon Dioxide 22 Anion Gap 11 BUN 15.0 Creatinine 0.7 Est GFR (CKD-EPI)AfAm 89.66 Est GFR (CKD-EPI)NonAf 77.36 POC Glucometer 227 Random Glucose 218 H Calcium 9.5 Magnesium 2.1 Total Bilirubin 0.5 AST 31 ALT 37 Alkaline Phosphatase 55 Total Protein 6.6 Albumin 3.4 Active Medications Generic Name Dose Route Start Last Admin Trade Name Freq PRN Reason Stop Dose Admin Albuterol/Ipratropium 1 amp 08/27/19 20:00 08/29/19 08:05 Duoneb - NEB 1 amp RQID ANTHONY Administration Allopurinol 300 mg 08/26/19 10:00 08/29/19 09:07 Zyloprim - PO 300 mg DAILY ANTHONY Administration Benzocaine/Menthol 1 each 08/25/19 14:56 08/26/19 10:18 Cepacol Lozenge - MM 1 each PRN PRN Administration SORE THROAT Docusate Sodium 300 mg 08/27/19 22:00 08/28/19 21:33 Colace - PO 300 mg HS ANTHONY Administration Enoxaparin Sodium 40 mg 08/26/19 10:00 08/29/19 09:08 Lovenox - SQ 40 mg DAILY ANTHONY Administration Guaifenesin 1 tablet 08/25/19 22:00 08/29/19 09:07 Mucinex Dm - PO 1 tablet BID ANTHONY Administration Azithromycin 250 mg/ Dextrose 250 mls @ 250 mls/hr 08/26/19 13:00 08/29/19 09 :07 IVPB 250 mls/hr DAILY ANTHONY Administration Ceftriaxone Sodium 50 mls @ 100 mls/hr 08/26/19 10:15 08/29/19 09:50 Ceftriaxone 1 Gm-D5w Bag IVPB 100 mls/hr DAILY ANTHONY Administration Insulin Aspart 0 units 08/27/19 22:00 08/29/19 06:59 Novolog Vial SQ 4 units ACHS ANTHONY Administration Protocol Methylprednisolone Sodium Succinate 40 mg 08/28/19 02:00 08/29/19 09:08 Solu-Medrol - IVPUSH 40 mg Q8H-IV ANTHONY Administration Non-Formulary Medication 40 mg 08/25/19 22:00 08/28/19 21:34 Simvastatin [Simvastatin] PO 40 mg HS ANTHONY Administration Pantoprazole Sodium 40 mg 08/27/19 12:15 08/29/19 09:07 Protonix - PO 40 mg DAILY ANTHONY Administration Polyethylene Glycol 17 gm 08/27/19 22:00 08/29/19 09:06 Miralax (For Daily Use) - PO 17 gm BID ANTHONY Administration Spironolactone 25 mg 08/27/19 10:00 08/29/19 09:06 Aldactone - PO 25 mg BID ANTHONY Administration ASSESSMENT/PLAN: 89 year-old female with a PMH significant for HTN, HLD, COPD, GERD, chronic constipation, and gout, admitted for pneumonia. Community-acquired pneumonia Acute on chronic COPD --08/26 CT chest: patchy consolidation RLL --afebrile; no leukocytosis --continue ceftriaxone (day #4) and azithromycin (day #4) --duonebs scheduled, Spiriva --continue solumedrol IVP 40mg q8h --rapid flu negative; urine Ag neg; --blood cultures NGTD Pulmonary nodule --6mm RLL nodule, needs 3-month followup Hypertension --BP stable --continue spironolactone Hyperlipidemia --continue simvastatin GERD --protonix Chronic constipation --continue miralax, colace Gout --continue allopurinol FEN Fluids: PO intake adequate Electrolytes: replete as indicated Nutrition: low sodium DVT prophylaxis: subq lovenox Dispo: continues to require inpatient care. Plan to discharge in am. Full code. Visit type - Emergency Visit Emergency Visit: Yes ED Registration Date: 08/25/19 Care time: The patient presented to the Emergency Department on the above date and was hospitalized for further evaluation of their emergent condition. 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 I confirm that the documentation accurately reflects all work, treatment, procedures, and medical decision making performed by me.
[2019-08-29] MEDS: PATIENT'S OWN MEDICATION (NON-FORMULARY) (Simvastatin [Simvastatin] 40 MG) PO SCH (21:41)
[2019-08-29] MEDS: DOCUSATE SODIUM 100 MG CAPSULE (FP) PO SCH (21:45)
[2019-08-30 06:13] VITALS: TEMP 97.4
[2019-08-30] MEDS: INSULIN (NOVOLOG) ASPART 100 UNITS/ML 10ML VIAL SQ SCH ×2 (07:21→11:19)
[2019-08-30] MEDS: ALBUTEROL SO4 2.5/IPRATROPIUM 0.5 INH SOL 3 ML VIAL.NEB. NEB SCH ×2 (08:05→12:38)
[2019-08-30] MEDS: methylPREDNISolone NA SUCC 40 MG/1 ML VIAL IVPUSH SCH (08:17)
[2019-08-30] MEDS: ALLOPURINOL 300 MG TABLET (FP) PO SCH ×2 (08:17→09:45)
[2019-08-30] MEDS: SPIRONOLACTONE 25 MG TABLET (FP) PO SCH ×2 (08:17→09:45)
[2019-08-30 09:44] VITALS: BP 149/77; PULSE 80
[2019-08-30] MEDS: ENOXAPARIN NA (PORCINE) 40 MG/0.4 ML DISP.SYRIN SQ SCH (09:46)
[2019-08-30] MEDS: CEFTRIAXONE 1 G/50 ML PREMIX 50 ML IVPB SCH (09:46)
[2019-08-30] MEDS: POLYETHYLENE GLYCOL 3350 119 GM BTL PO SCH (09:47)
[2019-08-30] MEDS: guaiFENesin/D-METHORPHAN TAB.ER.12H PO SCH (09:47)
[2019-08-30] MEDS: PANTOPRAZOLE 40 MG TABLET (FP) PO SCH (09:47)
[2019-08-30] MEDS: AZITHROMYCIN IVPB 250 MG in DEXTROSE 5%-WATER - 250 ML IVPB SCH (09:59)
[2019-08-30] MEDS ORDERED: predniSONE 20 MG TABLET (UD) PO SCH (10:00)
--- NOTE | 2019-08-30 11:54 | DS ---
Documentation entered by Giulia Bill SCRIBE, acting as scribe for Auar Fitzgerald NP. Physical Exam: SUBJECTIVE: Patient seen and examined. Feels well, still with some coughing. Feels ready to go home. OBJECTIVE: Vital Signs Period Temp Pulse Resp BP Sys/Macario Pulse Ox Last 24 Hr 97.4 F-98.4 F 79-108 16-20 129-154/64-95 95-96 PHYSICAL EXAM GENERAL: The patient is awake, alert, and fully oriented, in no acute distress. LUNGS: CTA HEART: Regular rate and rhythm, S1, S2 ABDOMEN: Soft, nontender, nondistended EXTREMITIES: 2+ pulses, warm, well-perfused, no edema. NEUROLOGICAL: Cranial nerves II through XII grossly intact. Normal speech, gait not observed. SKIN: Warm, dry, normal turgor LABS Laboratory Results - last 24 hr 08/29/19 08/29/19 08/29/19 08:37 08:37 21:51 WBC 10.1 RBC 3.82 Hgb 11.9 Hct 36.6 MCV 95.8 MCH 31.1 MCHC 32.5 RDW 16.6 H Plt Count 153 MPV 10.6 Absolute Neuts (auto) 8.9 Neutrophils % 88.3 H Lymphocytes % 6.8 L Monocytes % 4.2 Eosinophils % 0.0 Basophils % 0.7 Sodium 131 L Potassium 4.3 Chloride 98 Carbon Dioxide 22 Anion Gap 11 BUN 15.0 Creatinine 0.7 Est GFR (CKD-EPI)AfAm 89.66 Est GFR (CKD-EPI)NonAf 77.36 POC Glucometer 288 Random Glucose 218 H Calcium 9.5 Magnesium 2.1 Total Bilirubin 0.5 AST 31 ALT 37 Alkaline Phosphatase 55 Total Protein 6.6 Albumin 3.4 08/30/19 06:36 WBC RBC Hgb Hct MCV MCH MCHC RDW Plt Count MPV Absolute Neuts (auto) Neutrophils % Lymphocytes % Monocytes % Eosinophils % Basophils % Sodium Potassium Chloride Carbon Dioxide Anion Gap BUN Creatinine Est GFR (CKD-EPI)AfAm Est GFR (CKD-EPI)NonAf POC Glucometer 105 Random Glucose Calcium Magnesium Total Bilirubin AST ALT Alkaline Phosphatase Total Protein Albumin HOSPITAL COURSE: Date of Admission:08/25/19 Date of Discharge: 08/30/19 Pre-Hospital Course This is an 89yo female with a PMH HTN, emphysema/COPD,HDL, pneumonia 8 years ago and gout, who presents to ER complaining of worsening non productive cough and unable to sleep at night. Pt denies fever, chills, cp, sob, palpitations, abdominal pain, N/V/D or urinary symptoms. Pt was seen in the ED on 08/19 and again on 08/23 with worsening sinusitis with blood-streaked sputum and RT ear pain and started on Augmentin twice daily told to follow-up with Dr. Jessika Romero, ENT and discharged to home. Pt reports RT ear pain / sinus infection slowly getting better. ED Course (1)wbc 17.1, afebrile, R 22, HR 115 (2) Na 128,<k 3.8 (3) CXR: Progressive atelectasis or infiltrate Subsequent Hospital Course 89 year-old female with a PMH significant for HTN, HLD, COPD, GERD, chronic constipation, and gout, admitted for pneumonia. Community-acquired pneumonia Acute on chronic COPD --08/26 CT chest: patchy consolidation RLL --treated with ceftriaxone x 5 days, azithro x 5 days, duonebs scheduled, Spiriva, IV steroids --rapid flu negative; urine Ag neg; blood cultures NGTD Pulmonary nodule --6mm RLL nodule, needs 3-month followup Hypertension --BP stable --continued spironolactone Hyperlipidemia --continued simvastatin GERD --protonix Chronic constipation --continued miralax, colace Gout --continued allopurinol Minutes to complete discharge: 35 Discharge Summary Problems reviewed: Yes Reason For Visit: CHRONIC OBSTRUCTIVE PULMONARY DISEASE Current Active Problems COPD (chronic obstructive pulmonary disease) (Acute) Cough (Acute) Hyponatremia (Acute) Pneumonia (Acute) Right otitis media (Acute) Condition: Fair - Instructions - Home Medications Comprehensive Discharge Medication List: Ambulatory Orders Albuterol Sulfate [Proair Respiclick] 90 mcg IH BID 10/23/16 Amoxicillin/Potassium Clav [Augmentin 875-125 Tablet] 1 each PO BID 10 Days #20 tablet 08/23/19 Docusate Sodium [Colace] 100 mg PO TID 08/25/19 This patient is new to me today: No Emergency Visit: Yes ED Registration Date: 08/25/19 Care time: The patient presented to the Emergency Department on the above date and was hospitalized for further evaluation of their emergent condition. Critical Care patient: No - Discharge Referral Referred to [facility] Aura Latham, MAYLIN: This documentation has been prepared by the Fly long Maria, SCRIBE, under my direction and personally reviewed by me in its entirety. I confirm that the documentation accurately reflects all work, treatment, procedures, and medical decision making performed by me.
== END 2019-08-30 13:35 | disposition home or self-care (01) | DRG 190 ==
LOC: FER 11:07 → FM/S 14:02
PROVIDERS: ADMIT Internal Medicine; ATTEND Nurse Practitioner Acute Care
DX: J44.1 Chronic obstructive pulmonary disease with (acute) exacerbation (principal); J18.9 Pneumonia, unspecified organism; J98.11 Atelectasis; E87.1 Hypo-osmolality and hyponatremia; I10 Essential (primary) hypertension; K21.9 Gastro-esophageal reflux disease without esophagitis; E78.00 Pure hypercholesterolemia, unspecified; E78.5 Hyperlipidemia, unspecified; J32.9 Chronic sinusitis, unspecified; H66.91 Otitis media, unspecified, right ear; M10.9 Gout, unspecified; K59.09 Other constipation; R73.9 Hyperglycemia, unspecified; R91.1 Solitary pulmonary nodule
CPT/HCPCS: 36415; 71046-TC-FY; 71250-TC; 80048; 80053; 81003; 81015; 82962; 83735; 85025; 87040; 87804; 87899; 93005; 94640; 99282-25; 99283-25; J7030